=== PATIENT | female | born 1975 | race Caucasian/White ===

== ENCOUNTER 2020-08-05 12:45 | Outpatient (REF) | payer BC, SELFPAY ==
--- NOTE | ~2020-08-05 | CT_ITS ---
EXAMINATION: CT CHEST WITHOUT CONTRAST CLINICAL INFORMATION: Follow-up left lower lobe pulmonary nodule seen on abdominal pelvic CT scan COMPARISON: Abdominal pelvic CT scan June 2013 TECHNIQUE: Multidetector volumetric CT imaging of the chest was done. Axial MIP volume rendering provided. Sagittal and coronal reformatted images were obtained. This CT examination was performed using dose optimization techniques as appropriate, variously including the following: *Automated exposure control *Adjustment of mA and/or kV according to patient size (this includes techniques or standardized protocols for targeted exams where dose is matched to indication/reason for exam; i.e. extremities or head) *Use of iterative reconstruction technique DLP: 175 mGy-cm FINDINGS: CARD DOFFER: Unremarkable LUNGS: There is a 3 mm peripheral or subpleural left lower lobe pulmonary nodule in the left lateral costophrenic sulcus axial image 363 series 7. This is stable from abdominal pelvic CT June 2019 and may represent a subpleural lymph node. The lungs are otherwise clear. MEDIASTINUM: The mediastinum is normal. PLEURA: There is no pleural effusion. No pleural mass or thickening. AXILLA: No lymphadenopathy. UPPER ABDOMEN: There is a 2 x 2.8 cm cyst in the liver that is stable. Images through the upper abdomen are otherwise unremarkable. OSSEOUS STRUCTURES: There is mild curvature of the proximal thoracic spine to the right. Bony structures are otherwise unremarkable. CT/CT chest wo con IMPRESSION: Stable 3 mm left lower lobe pulmonary nodule from June [address] scan. No imaging follow-up recommended. Stable liver cyst.
== END 2020-08-05 12:46 | disposition home or self-care (01) ==
LOC: HO.CT 12:45
PROVIDERS: Visit Provider Internal Medicine
DX: A09 Infectious gastroenteritis and colitis, unspecified (principal)
CPT/HCPCS: 71250